=== PATIENT | female | born 1990 | race Caucasian/White ===

== ENCOUNTER 2021-05-29 20:21 | Emergency (ER) | payer OTHER, SELFPAY ==
[2021-05-29 21:02] VITALS: BP 115/65; BP 126/79; PULSE 89; PULSE 98; RESP 18; TEMP 36.7; O2SAT 99; BMI 33.3
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
[2021-05-30] MEDS: Ibuprofen 600 MG TABLET PO (00:29)
== END 2021-05-30 00:43 | disposition home or self-care (01) ==
PROVIDERS: Emergency Provider Emergency Medicine Emergency Medical Services; PCP Internal Medicine
DX: S40.011A Contusion of right shoulder, initial encounter (principal); S13.9XXA Sprain of joints and ligaments of unspecified parts of neck, initial encounter; M54.2 Cervicalgia; M25.511 Pain in right shoulder; V43.62XA Car passenger injured in collision with other type car in traffic accident, initial encounter; Y93.9 Activity, unspecified; Y92.410 Unspecified street and highway as the place of occurrence of the external cause; Y99.9 Unspecified external cause status
CPT/HCPCS: 99283; 99284

== ENCOUNTER 2021-08-24 17:00 | Outpatient (RCR) | payer OTHER, SELFPAY | END 2021-09-21 10:34 | disposition home or self-care (01) | LOC: HO.PT 17:00 | PROVIDERS: PCP Internal Medicine; Visit Provider Physician Assistant | DX: M54.50 Low back pain, unspecified (principal) | CPT/HCPCS: 97110; 97140; 97162; 97163 ==